=== PATIENT | male | born 1980 | race Two or more races ===

== ENCOUNTER 2023-09-22 08:47 | Outpatient (AMB) | payer OTHER, SELFPAY ==
--- NOTE | 2023-09-22 08:53 | MHC.OFFVIS ---
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 States on 09/20/23 while cleaning his glutter he fell off the ladder, landing on his foot. Seen in [facility] same day where xrays and a CT scan. Currently states his pain is a little better today. He has been using crutches and minimally weight-bearing on his right foot. The patient states that he currently lives mostly in [place]. 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 Physical Exam Vital Signs: BMI result Body Mass Index 26.8 Const Other: Well-nourished well-developed very friendly male awake alert and oriented x3 in no acute distress Extrem Other: Right foot and ankle examination show diffuse swelling along the anterior and lateral aspects of his foot and ankle, his lower leg compartments are soft, tenderness over the proximal aspect of his 5th metatarsal Results Reviewed Results Reviewed: X-rays of the patient's right foot show a mildly comminuted, minimally displaced fracture of the proximal aspect of his 5th metatarsal Assessment & Plan Assessment & Plan (1) Metatarsal stress fracture of right foot: Code(s): M84.374A - Stress fracture, right foot, initial encounter for fracture Plan: Mr. Hdz presents with right foot pain due to a minimally displaced fracture of the proximal aspect of his 5th metatarsal. I had a lengthy discussion with the patient regarding the treatment options. Most likely the patient's fracture will heal with non operative treatments. He was placed in a cam walker boot. He should continue with restricted weight-bearing until his pain improves significantly. I did recommend that the patient follow-up with a foot and ankle specialist when he returns to his home in [place]. He will follow up with me on an as-needed basis should any further questions or concerns arise. I spent 22 minutes in reviewing the patient's records and imaging studies, seeing the patient and documenting in the medical record. Coding Level of Care Code New Pt Level 2 (19029) Diagnoses Metatarsal stress fracture of right foot M84.374A
[2023-09-22 08:57] VITALS: BMI 26.8
== END 2023-09-22 09:19 | disposition home or self-care (01) ==
PROVIDERS: Visit Provider Orthopaedic Surgery
DX: M84.374A Stress fracture, right foot, initial encounter for fracture (principal)
CPT/HCPCS: 99202

== ENCOUNTER → 2023-09-22 08:47 | Outpatient (BNVA) | payer OTHER, SELFPAY | PROVIDERS: Visit Provider Orthopaedic Surgery ==

== ENCOUNTER 2023-10-18 07:17 | Outpatient (REF) | payer OTHER, SELFPAY ==
--- NOTE | ~2023-10-18 | XR_ITS ---
EXAMINATION: XR RIGHT ANKLE, RIGHT FOOT CLINICAL INFORMATION: Pain in right ankle and joints of the foot. Stress fracture right foot. Initial encounter for fracture. COMPARISON: None TECHNIQUE: AP and oblique views of the right ankle. 3 views of the right foot. FINDINGS: RIGHT ANKLE: Bone mineralization is normal. Alignment is preserved. Visualization limited due to overlying dressing. RIGHT FOOT: There is a mildly displaced intra-articular fracture at the base of the fifth metatarsal. Adjacent soft tissue swelling. Visualization limited due to overlying cast/dressing. XR/XR ankle RT 2V IMPRESSION: Mildly displaced intra-articular fracture at the base of the fifth metatarsal. This study was presented today October 19, 2023 at 11:10 AM for interpretation. [facility] staff will provide results to referring provider at this time.
--- NOTE | ~2023-10-18 | XR_ITS ---
EXAMINATION: XR RIGHT ANKLE, RIGHT FOOT CLINICAL INFORMATION: Pain in right ankle and joints of the foot. Stress fracture right foot. Initial encounter for fracture. COMPARISON: None TECHNIQUE: AP and oblique views of the right ankle. 3 views of the right foot. FINDINGS: RIGHT ANKLE: Bone mineralization is normal. Alignment is preserved. Visualization limited due to overlying dressing. RIGHT FOOT: There is a mildly displaced intra-articular fracture at the base of the fifth metatarsal. Adjacent soft tissue swelling. Visualization limited due to overlying cast/dressing. XR/XR foot RT 2V IMPRESSION: Mildly displaced intra-articular fracture at the base of the fifth metatarsal. This study was presented today October 19, 2023 at 11:10 AM for interpretation. [facility] staff will provide results to referring provider at this time.
== END 2023-10-18 07:18 | disposition home or self-care (01) ==
LOC: HO.HOSX 07:17
PROVIDERS: Visit Provider Orthopaedic Surgery
DX: M84.374A Stress fracture, right foot, initial encounter for fracture (principal)
CPT/HCPCS: 73600; 73620

== ENCOUNTER 2023-10-18 08:16 | Outpatient (AMB) | payer OTHER, SELFPAY ==
--- NOTE | 2023-10-18 08:27 | MHC.OFFVIS ---
Intake Vital Signs 10/18/23 08:33 Height 5 ft 7 in Weight 170 lb BMI 26.6 Intake Visit Reasons: OV-Right foot/ ankle fracture Intake Note: Joe a 43 year old male presents today for a follow up of right foot/ankle, DOI 09/20/23. The patient reports mild intermittent discomfort in his right foot and ankle. He has been weight-bearing as tolerated in a cam boot and using a cane over the last days. He does not take any medicines for his discomfort. 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 Exam Const Other: Well-nourished well-developed very friendly male awake alert and oriented x3 in no acute distress Extrem Other: Bilateral lower extremity examination shows good capillary refill, no skin lesions noted, normal sensation light touch Right foot and ankle examination show mild tenderness along his medial and anterior joint lines, minimal tenderness over his proximal 5th metatarsal, no overlying skin lesions Results Reviewed Results Reviewed: X-rays of the patient's right foot and ankle show a nondisplaced avulsion fracture of the proximal aspect of the 5th metatarsal, early callus formation at the fracture site; no medial ankle joint space widening Assessment & Plan Assessment & Plan (1) Metatarsal stress fracture of right foot: Code(s): M84.374A - Stress fracture, right foot, initial encounter for fracture Plan: Mr. Hdz continues to do well after suffering a fracture of his right foot 5th metatarsal on 09/20/2023. He can continue weight-bearing as tolerated in the cam walker boot. Activity modifications were discussed at length with the patient. He will contact me prior to his follow-up appointment in 6 weeks should any questions or concerns arise. I spent 22 minutes in reviewing the patient's records and imaging studies, seeing the patient and documenting in the medical record. Orders: Orders XR foot RT 2V Today M84.374A - Stress fracture, right foot, initial encounter for fracture XR ankle RT 2V Today M25.571 - Pain in right ankle and joints of right foot Coding Level of Care Code Est Pt Level 2 (83741) Diagnoses Metatarsal stress fracture of right foot M84.374A
[2023-10-18 08:33] VITALS: BMI 26.6
== END 2023-10-18 08:42 | disposition home or self-care (01) ==
PROVIDERS: Visit Provider Orthopaedic Surgery
DX: M84.374A Stress fracture, right foot, initial encounter for fracture (principal)
CPT/HCPCS: 99212

== ENCOUNTER 2023-11-29 08:04 | Outpatient (AMB) | payer OTHER, SELFPAY ==
[2023-11-29 08:07] VITALS: BMI 26.6
--- NOTE | 2023-11-29 08:07 | A.OFFVIS_ITS ---
Intake Vital Signs 11/29/23 08:07 Height 5 ft 7 in Weight 170 lb BMI 26.6 Intake Visit Reasons: OV-Right foot/ ankle fracture Intake Note: Joe a 43 year old male who presents today for a follow up of right foot/ankle, DOI 09/20/23. Patient reports the his foot / ankle is feeling better but his left hip is having some discomfort. He did undergo open reduction and internal fixation of his left hip acetabular fracture approximately 10 years ago. He denies any fevers or chills. He thinks that he has aggravated his left hip while limping to favor his right ankle discomfort. 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 Exam Vital Signs: BMI result Body Mass Index 26.6 Const Other: Well-nourished well-developed very friendly male awake alert and oriented x3 in no acute distress Extrem Other: Left hip examination shows minimal discomfort with range of motion, mild tenderness over his bursa Right foot examination shows minimal tenderness over the base of his 5th metatarsal, minimal discomfort with range of motion Results Reviewed Results Reviewed: X-rays of the patient's left hip taken today show acetabular hardware in good position with no signs of loosening, no acute bony abnormalities, mild joint space narrowing X-rays of the patient's right foot show bony trabecula crossing his 5th metatarsal base fracture Assessment & Plan Assessment & Plan (1) Left hip pain: Code(s): M25.552 - Pain in left hip (2) Metatarsal stress fracture of right foot: Code(s): M84.374A - Stress fracture, right foot, initial encounter for fracture Plan Mr. Hdz continues to clinically and radiographically heal his right foot 5th metatarsal base fracture. He will continue wearing a brace as needed. The patient has discomfort in his left hip most likely due to early degenerative howard int disease and greater trochanteric bursitis. At this point his hip discomfort is tolerable to him. He will continue activity modifications. He will follow up with me on an as-needed basis should his symptoms not plateau at an unacceptable level over the next few months. I spent 20 minutes in reviewing the patient's records and imaging studies, seeing the patient and documenting in the medical record. Orders: Orders XR hip LT min 2V Today M25.552 - Pain in left hip XR foot RT min 3V Today M84.374A - Stress fracture, right foot, initial encounter for fracture Coding Level of Care Code Est Pt Level 2 (74792) Diagnoses Left hip pain M25.552 Metatarsal stress fracture of right foot M84.374A
== END 2023-11-29 08:48 | disposition home or self-care (01) ==
PROVIDERS: Visit Provider Orthopaedic Surgery
DX: M25.552 Pain in left hip (principal); M84.374A Stress fracture, right foot, initial encounter for fracture
CPT/HCPCS: 99213

== ENCOUNTER 2023-11-29 08:12 | Outpatient (REF) | payer OTHER, SELFPAY ==
--- NOTE | ~2023-11-29 | XR_ITS ---
EXAMINATION: XR FOOT, RIGHT CLINICAL INFORMATION: Question stress fracture. COMPARISON: None available. TECHNIQUE: AP, lateral, and oblique views of the right foot. FINDINGS: The bones and soft tissues are normal. No fracture. There is no periosteal thickening noted. Alignment is anatomic. Joint spaces are maintained. XR/XR foot RT min 3V IMPRESSION: Normal right foot.
--- NOTE | ~2023-11-29 | XR_ITS ---
EXAMINATION: XR HIP, LEFT CLINICAL INFORMATION: Pain. COMPARISON: None available. TECHNIQUE: AP and frog-leg lateral views of the left hip. FINDINGS: No fracture. An orthopedic plate and screws are applied to the left ilium and acetabulum. No hardware failure or loosening is seen. Alignment is anatomic. Hip joint space is maintained. Soft tissues are unremarkable. XR/XR hip LT min 2V IMPRESSION: No unusual degenerative change is seen of the left hip. There are postoperative changes, without hardware failure or loosening noted.
== END 2023-11-29 08:13 | disposition home or self-care (01) ==
LOC: HO.HOSX 08:12
PROVIDERS: Visit Provider Orthopaedic Surgery
DX: M84.374A Stress fracture, right foot, initial encounter for fracture (principal); M25.552 Pain in left hip
CPT/HCPCS: 73502; 73630

== ENCOUNTER 2024-02-01 20:40 | Outpatient (REF) | payer OTHER, SELFPAY ==
[2024-02-01 20:53] LABS: MANUAL DIFF FLAG NO
[2024-02-01 20:54] LABS: Basophils Absolute Auto 0.1 X10*3/uL (0.0-0.2); Basophils Percent Auto 0.7 % (0-2); Eosinophils Absolute Auto 0.1 X10*3/uL (0.0-0.4); Eosinophils Percent Auto 1.2 % (0-4); Hematocrit 43.9 % (42.0-52.0); Hemoglobin 15.8 g/dl (14.0-18.0); Imm Gran Abs Auto 0.03 X10*3/uL (0.00-0.03); Imm Gran Pct Auto 0.4 % (0.0-0.4); Lymphocytes Absolute Auto 2.3 X10*3/uL (1.2-4.9); Lymphocytes Percent Auto 33.1 % (20-40); Mean Corpuscular Hemoglobin 32.2 pg (27.0-33.0); Mean Corpuscular Volume 89.6 fL (80.0-98.0); Mean Platelet Volume 11.5 fL (9.4-12.4); Monocytes Absolute Auto 0.6 X10*3/uL (0.1-1.2); Monocytes Percent Auto 8.3 % (2-11); Neutrophils Absolute Auto 3.9 x10*3/uL (2.0-8.3); Neutrophils Percent Auto 56.3 % (45-73); Platelet Count 193 X10*3/uL (160-400); White Blood Count 6.9 X10*3/uL (4.8-10.8)
[2024-02-01 21:09] LABS: Estimated Average Glucose 103 mg/dL; Hemoglobin A1c % 5.2 % (<6.0)
[2024-02-01 21:19] LABS: Alanine Aminotransferase 27 U/L (0-40); Albumin Level 4.8 g/dL (3.5-5.0); Alkaline Phosphatase 54 U/L (39-117); Anion Gap 10 (12-20); Aspartate Amino Transferase 19 U/L (5-37); Bilirubin Total 0.6 mg/dL (0.0-1.0); Blood Urea Nitrogen 18 mg/dL (9-16); Calcium 10.1 mg/dL (8.4-10.2); Carbon Dioxide 27 mmol/L (22-29); Chloride 107 mmol/L (96-108); Cholesterol 208 mg/dL (<200); Estimated Glomerular Filt Rate > 60; Glucose Random 97 mg/dL (60-115); HDL Cholesterol 38 mg/dL (>40); LDL Cholesterol Calculated 145 mg/dL (<100); Potassium 4.4 mmol/L (3.3-5.1); Sodium 140 mmol/L (135-145); Total Protein 8.2 g/dL (6.5-8.0); Triglycerides 125 mg/dL (<150)
[2024-02-01 21:35] LABS: Thyroid Stimulating Hormone 0.75 uIU/mL (0.32-4.0)
[2024-02-01 21:42] LABS: Folate 7.8 ng/mL (> or = 4.0); Vitamin B12 589 pg/mL (200-900)
== END 2024-02-01 20:41 | disposition home or self-care (01) ==
LOC: HO.LNP 20:40
PROVIDERS: Visit Provider Emergency Medicine
DX: Z13.6 Encounter for screening for cardiovascular disorders (principal); R53.83 Other fatigue
CPT/HCPCS: 80053; 80061; 82306; 82607; 82746; 83036; 84100; 84443; 85025

== ENCOUNTER 2024-03-13 18:01 | Outpatient (REF) | payer OTHER, SELFPAY ==
--- NOTE | ~2024-03-13 | MR_ITS ---
EXAMINATION: MR ANKLE WITHOUT CONTRAST, RIGHT CLINICAL INFORMATION: Right foot pain and edema. Skin discoloration. Talar and fifth metatarsal fractures following injury on 09/20/2023. Question ligament injury, avascular necrosis. COMPARISON: Most recent right foot radiographs dated 11/29/2023. TECHNIQUE: MRI of the ankle was performed using routine sequences on a high-field scanner. FINDINGS: BONE AND ARTICULAR CARTILAGE: Minimal patchy marrow edema within the medial malleolus and adjacent talar body, likely reactive to adjacent ligament pathology. No associated fracture. Healed fracture at the base of the fifth metatarsal with minimal if any persistent edema. No acute fracture or dislocation. Ankle mortise is maintained. Intact articular cartilage. No talar osteochondral lesion. ACHILLES TENDON: Intact. OTHER TENDONS: Trace fluid within the distal posterior tibialis tendon sheath consistent with minimal tenosynovitis. No transverse tendon tear or tendon retraction. LIGAMENTS: Diffuse heterogeneity and increased T2 signal throughout the deltoid ligament consistent with an acute grade 2 sprain/partial tear. Attenuation and heterogeneity of the anterior and posterior talofibular ligaments. Corticated ossification associated with the anterior talofibular ligament without edema. Findings are consistent with remote sprain/partial tears. JOINT FLUID AND SOFT TISSUES: No soft tissue mass or fluid collection. No significant joint effusion. PLANTAR FASCIA: Intact. SINUS TARSI AND TARSAL TUNNEL: Patent. MR/MR ankle RT wo con IMPRESSION: 1. Acute grade 2 sprain/partial tear of the deltoid ligament with reactive marrow edema in the adjacent medial malleolus and talar body. 2. Remote sprain/partial tears of the anterior and posterior talofibular ligaments. Corticated ossification associated with the anterior talofibular ligament without edema, consistent with remote sprain/partial tears. 3. Healed fracture at the base of the fifth metatarsal with minimal if any persistent edema. No acute fracture or dislocation. 4. Minimal posterior tibialis tenosynovitis without a measurable tendon tear.
== END 2024-03-13 18:02 | disposition home or self-care (01) ==
LOC: HO.MRI 18:01
PROVIDERS: PCP Internal Medicine; Visit Provider Orthopaedic Surgery
DX: M25.471 Effusion, right ankle (principal)
CPT/HCPCS: 73721

== ENCOUNTER 2025-02-11 15:36 | Outpatient (REF) | payer OTHER, SELFPAY ==
--- NOTE | ~2025-02-11 | XR_ITS ---
EXAMINATION: XR CERVICAL SPINE CLINICAL INFORMATION: headaches COMPARISON: None available. TECHNIQUE: 3 views of the cervical spine were obtained. FINDINGS: Craniocervical junction is intact. Small marginal osteophyte formation C4-5 C5-6 and C6-7 levels. No acute cortical disruption or malalignment. No lytic or blastic lesions. Focal well-corticated calcification in the nuchal ligament at C4 level Upper airways patent. XR/XR cervical spine 3V IMPRESSION: Mild multilevel cervical spondylosis more conspicuous at C5-6. Electronically signed by: Karthik Hill MD 02/13/2025 12:52 PM EDT
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
== END 2025-02-11 15:37 | disposition home or self-care (01) ==
LOC: HO.XRAY 15:36
DX: R51.9 Headache, unspecified (principal)
CPT/HCPCS: 72040

== ENCOUNTER → 2025-02-11 15:58 | Outpatient (BNV) | payer OTHER, SELFPAY | PROVIDERS: Visit Provider Radiology Diagnostic Radiology | DX: R51.9 Headache, unspecified (principal) | CPT/HCPCS: 72040 ==

== ENCOUNTER 2025-05-16 12:19 | Outpatient (REF) | payer OTHER, SELFPAY ==
[2025-02-12 20:45] LABS: MANUAL DIFF FLAG NO
[2025-02-12 20:54] LABS: Basophils Percent Auto 0.5 % (0-2); Eosinophils Absolute Auto 0.1 X10*3/uL (0.0-0.4); Eosinophils Percent Auto 1.5 % (0-4); Hematocrit 41.9 % (42.0-52.0); Imm Gran Abs Auto 0.03 X10*3/uL (0.00-0.03); Imm Gran Pct Auto 0.4 % (0.0-0.4); Lymphocytes Percent Auto 26.3 % (20-40); Mean Corpuscular HGB Conc 35.8 g/dl (31.0-36.0); Mean Corpuscular Hemoglobin 32.1 pg (27.0-33.0); Mean Corpuscular Volume 89.7 fL (80.0-98.0); Mean Platelet Volume 11.2 fL (9.4-12.4); Monocytes Absolute Auto 0.7 X10*3/uL (0.1-1.2); Neutrophils Absolute Auto 4.7 x10*3/uL (2.0-8.3); Neutrophils Percent Auto 62.3 % (45-73); Platelet Count 182 X10*3/uL (160-400); Red Blood Count 4.67 X10*6/uL (4.60-5.80); Red Cell Distribution Width 12.2 % (11.0-16.0); White Blood Count 7.5 X10*3/uL (4.8-10.8)
[2025-02-12 21:08] LABS: Alanine Aminotransferase 40 U/L (0-40); Albumin Level 4.4 g/dL (3.5-5.0); Alkaline Phosphatase 45 U/L (39-117); Anion Gap 9 (12-20); Aspartate Amino Transferase 25 U/L (5-37); Bilirubin Total 0.5 mg/dL (0.0-1.0); Blood Urea Nitrogen 21 mg/dL (9-16); Calcium 9.4 mg/dL (8.4-10.2); Carbon Dioxide 25 mmol/L (22-29); Chloride 107 mmol/L (96-108); Cholesterol 219 mg/dL (<200); Estimated Glomerular Filt Rate > 60; Glucose Random 95 mg/dL (60-115); HDL Cholesterol 44 mg/dL (>40); LDL Cholesterol Calculated 154 mg/dL (<100); Potassium 4.4 mmol/L (3.3-5.1); Sodium 137 mmol/L (135-145); Total Protein 7.4 g/dL (6.5-8.0); Triglycerides 106 mg/dL (<150)
[2025-02-12 21:21] LABS: Vitamin D 25-OH Total 32.2 ng/mL (>30)
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
== END 2025-05-16 12:20 | disposition home or self-care (01) ==
LOC: HO.LAB 12:19
DX: Z00.00 Encounter for general adult medical examination without abnormal findings (principal)
CPT/HCPCS: 36415; 80053; 80061; 82306; 85025

== ENCOUNTER 2025-08-26 09:13 | Outpatient (AMB) | payer OTHER, SELFPAY ==
--- NOTE | 2025-08-26 09:15 | A.OFFVIS_ITS ---
Vital Signs 08/26/25 09:16 Height 5 ft 7 in Weight 171 lb 15.369 oz BMI 26.9 BP 114/83 Blood Pressure Location Lt brachial Position Sitting Pulse 63 Intake Visit Reasons: lower gi bleed Intake Note: Joe presents in the office as a lower GI bleed new patient. CC: States that he is not actively bleeding but it comes and goes. States his last episode was last week - states it is not alot and not painful. Denies constipation or issues with his bowels. States that it has been happening more and more frequently. 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 Onset almost a year ago but has been progressively getting more frequent. Last week noticed rectal bleeding on wiping at least 3 times a week. Fresh blood, no clots, no pain. Not constipated. No straining. Stools are soft and regular. Brother: advanced polyps No fam hx of IBD. No anti-thrombotics. No changes in diet. Former smoker. Alcohol - once a month. 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 Review of Systems Const All systems reviewed & are unremarkable except as noted in HPI and below Physical Exam Exam Exam: No apparent distress Nonicteric Abdomen soft, nondistended Alert and oriented x3, normal gait Vital Signs: Last Vital Signs Pulse 63 08/26/25 09:16 BP 114/83 08/26/25 09:16 BMI result Body Mass Index 26.9 Assessment & Plan Assessment & Plan (1) Bright red rectal bleeding: Code(s): K62.5 - Hemorrhage of anus and rectum Category: Medical (2) Family history of colonic polyps: Code(s): Z83.719 - Family history of colon polyps, unspecified Category: Medical Plan Differentials include hemorrhoidal bleeding, SURS, proctitis, large friable polyp or mass. Will book for diagnostic colo. Plan: - CBC and iron panel - [place] to be booked - PEG prep Rxed and instructions reviewed. Handout provided as well. - Pt travels for work so will need to be coordinated during his time off Follow up after colo contingent on findings Orders: Orders Complete Blood Count no Diff Today K62.5 - Hemorrhage of anus and rectum IRON PROFILE Today K62.5 - Hemorrhage of anus and rectum Ferritin Today K62.5 - Hemorrhage of anus and rectum Referrals GI Procedure Notification K62.5 - Hemorrhage of anus and rectum Medications: New peg 3350-electrolytes 236-22.74-6.74 -5.86 gram (Golytely) as per split prep instructions, until fecal effluent is clear 240 mL PO Q10M 4,000 mL 0RF colonoscopy hydrocortisone 2.5% (Anusol-HC) 1 appl WA BEDTIME 30 grams 0RF hemorrhoids 14 days Coding Level of Care Code New Pt Level 4 (61721) Complex EM visit Add On G2211 Diagnoses Bright red rectal bleeding K62.5 Family history of colonic polyps Z83.719
[2025-08-26 09:16] VITALS: BP 114/83; PULSE 63; BMI 26.9
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
--- OUTSIDE RECORDS SUMMARY | 2025-08-26 10:23 | XMS_ITS | Clinical Summary ---
Author Organization [facility] Address [address] [address] Phone Care Team Providers Care Chronic Disease Manager Name Role Phone Unavailable Primary Care Provider Unavailabl e Immunizations Immunization Administration Dates Next Due Influenza Quadrivalent Preservative Free IM 05/2018 Social History Tobacco Use Types Packs/Day Years Used Date Smoking Tobacco: Never Assessed Education Answer Date Recorded Are you interested in more education? Not on arturo e 03/18/2023 Are you concerned about learning? Not on file 03/18/2023 No 03/18/2023 No 03/18/2023 Digital Access Answer Date Recorded No 04/16/2023 No 04/16/2023 No 04/16/2023 Reliable internet access at home? Not on file 04/16/2023 Device with a working camera? Not on file Sex and Gender Information Value Date Recorded Sex Assigned at Not on file Legal Sex Male 4:34 PM EDT Gender Identity Not on file Sexual Orientation Not on file Plan of Treatment Health Maintenance Due Date Last Done Comments Adult Td,Tdap Booster 1978 LIPID PANEL 1978 DEPRESSION SCREENING 1990 SMOKING Hx and SMOKELESS TOB ACCO SCREENING 1991 HEPATITIS C SCREENING 1996 HIV ONE-TIME SCREENING (18-6 5 YEARS) 1996 COLOGUARD 2023 COLONOSCOPY 2023 COLORECTAL CANCER SCREENING 2023 FIT TEST 2023 FOBT 2023 SIGMOIDOSCOPY 2023 VIRTUAL COLONOSCOPY 2023 INFLUENZA VACCINE (#1) 2025 09/27/2018 COVID-19 VACCINE (2 - 2024-2 6 season) 2025 03/05/2021 HEPATITIS A VACCINES Aged Out No long er eligible based on patient's age to complete this topic HIB VACCINES Aged Out No longer eligi ble based on patient's age to complete this topic MENINGOCOCCAL VACCINES (ACWY) Aged Out No longer eligible based on patient's age to complete this topic MENINGOCOCCAL VACCINES (B) Aged Out N o longer eligible based on patient's age to complete this topic PNEUMOCOCCAL VACCINES (0-49 years) Aged Out No longer eligible based on patient's age to complete this topic Medical Devices Not on file Additional Source Comments The information contained in this document represents components of the legal health record. It is not the complete legal health record.[facility]
== END 2025-08-26 09:49 | disposition home or self-care (01) ==
LOC: HO.HGI 09:14
PROVIDERS: Visit Provider Internal Medicine
DX: K62.5 Hemorrhage of anus and rectum (principal); Z83.719 Family history of colon polyps, unspecified
CPT/HCPCS: 99204

== ENCOUNTER 2025-08-26 09:13 | Outpatient (REF) | payer OTHER, SELFPAY ==
[2025-08-26 11:11] LABS: Hematocrit 43.1 % (42.0-52.0); Hemoglobin 14.7 g/dl (14.0-18.0); Mean Corpuscular HGB Conc 34.1 g/dl (31.0-36.0); Mean Corpuscular Hemoglobin 31.3 pg (27.0-33.0); Mean Corpuscular Volume 91.7 fL (80.0-98.0); NRBC Abs Auto 0.000 X10*3/uL (0.0-0.012); NRBC Pct Auto 0.0 /100WBC (0.0-0.2); Platelet Count 184 X10*3/uL (160-400); Red Blood Count 4.70 X10*6/uL (4.60-5.80); White Blood Count 8.1 X10*3/uL (4.8-10.8)
[2025-08-26 12:02] LABS: Iron 63 mcg/dL (45-160); Percent Iron Saturation 21 % (15-50); Total Iron Binding Capacity 296 mcg/dL (228-428); Unsaturated Iron Binding 233 ug/dL
[2025-08-26 12:20] LABS: Ferritin 148 ng/mL (20-250)
== END 2025-08-26 09:14 | disposition home or self-care (01) ==
LOC: HO.LAB 09:13
PROVIDERS: Visit Provider Internal Medicine
DX: K62.5 Hemorrhage of anus and rectum (principal); Z83.719 Family history of colon polyps, unspecified
CPT/HCPCS: 36415; 82728; 83540; 85027

== ENCOUNTER 2025-11-14 20:07 | Outpatient (REF) | payer OTHER, SELFPAY ==
--- NOTE | ~2025-11-14 | XR_ITS ---
CLINICAL HISTORY: Z56.9 - Unspecified problems related to employment 2 view chest x-ray Comparison: None provided Findings: No consolidation or effusion. Heart size is normal. No acute fracture. IMPRESSION: 1. No acute findings. This document has been electronically signed by: Siobhan Edwards MD on 11/14/2025 20:51:25
--- OUTSIDE RECORDS SUMMARY | 2025-11-14 20:11 | XMS_ITS | Clinical Summary ---
Author Organization [facility] Address [address] [address] Phone Care Team Providers Care Hog Room Supervisor Name Role Phone Unavailable Primary Care Provider [...] It is not the complete legal health record.[facility]
--- OUTSIDE RECORDS SUMMARY | 2025-11-14 20:11 | XMS_ITS | Data Portability ---
Author Organization [place] - Sander Wilkes MD, [facility], [employer] Address [address] [address] [place] [address] Assessment No assessment recorded. Plan of Treatment Reminders Order Date Submit Date Provider Last Modified By Organization Details Last Modified Time Details Appointments None recorded. Lab TSH, ultra-sens itive, serum 2018 019 [email or web address] Not available 9 05:52:25 lipid panel, serum 2018 019 Not available 9 05:52:25 HbA1c (hemoglobi n A1c), blood 2018 019 [email or web address] Not available 9 05:52:25 cmp, whole blood + emigdio 2018 019 [email or web address] Not available 9 05:52:25 CBC 2018 019 [email or web address] Not available 9 05:52:25 Referral None recorded. Procedures None recorded. Surgeries None recorded. Imaging None recorded. Medication Orders ibuprofen 600 mg tablet 2018 019 [facility], [address] [place] [address], [address], 9 14:47:25 sertraline 100 mg tablet 2018 019 [facility], [address] [place] [address], [address], 9 14:47:26 valacyclov ir 500 mg tablet 2018 019 [facility], [address] [place] [address], [address], 9 14:47:26 Ventolin HFA 90 mcg/actuat ion aerosol inhaler 2018 019 [facility], [address] [place] [address], [address], 9 14:47:24 Patient TargetsNo targets recorded. Patient Instructions Encounter Date Encounter Id Patient Instructions Last Modified By Organization Details Last Modified Time 02/13/2019 [id number] controlling your asthma: care instructions Not available 02/13/2019 14:47:17 learning about asthma Not available 02/13/2019 14:47:17 cold sores: care instructions [email or web address] Not available 02/13/2019 14:47:17 learning about mood disorders [email or web address] Not available 02/13/2019 14:47:17 Reason for Referral None Reported. Results Created Date Observation Date Name Description Value Unit Range Abnormal Flag Note LastModifiedBy Organization Detail LastModifiedTime 08/29/20 19 08/21/2019 XR, wrist , 3 or more view No observ ation record ed. [email or web address] Not Available 08/29 11:32:29 Result Notes None recorded. Problems Name Problem SNOMED Code Status Onset Date Resolution Date Notes Provider Name and Address Organization Details Recorded Time Family history of diabetes mellitus 257437810 Active Kevin Wilkes MD [address], [address], [place], [address], [facility] - Sander Wilkes MD, [facility] 9 14:39:09 Asthma 848379598 Active Kevin Wilkes MD [address], [address], [place], [address], [facility] - Sander Wilkes MD, [facility] 9 14:39:18 Depressive disorder 00545159 Active Kevin Wilkes MD [address], [address], [place], [address], [facility] Sofi Wlikes MD, [facility] 9 14:39:28 Herpes labialis 5614834 Active Kevin Wilkes MD [address], [address], [place], [address], [facility] Sofi Wilkes MD, [facility] 9 14:40:15 History of surgery 209908037 Active Kevin Wilkes MD [address], [address], [place], [address], [facility] Sofi Wilkes MD, [facility] 9 14:41:36 Problem Notes None [...] (BMI) Body weight Heart rate Oxygen saturation Respiratory rate Body temperature Systolic And Diastolic Provider Name and Address Organization Details Last Updated DateTime 9 170.18 cm 9.7 kg/m2 62669.7 3 g 72 /min 100 % 14 /min 98.8 [degF] 117/78 mm[Hg] Sander Wilkes MD [address], [address], [place], [address], [place] - Sander Wilkes MD, [facility] 9 14:38:36 Social History Question Answer Notes LastModified by Organizat ion Details LastModified Time Tobacco Smoking Status Never Smoker Not Available [facility] 09/05/2020 03:11:11 What Was The Date Of Your Most Recent Tobacco Screening? 02/13/2019 [id number] Information not available 09/05/2020 Sex: Unknown Functional Status None recorded. Mental Status None recorded. Family History Nothing Reported. Medical History No medical history recorded. Past Encounters Encounter ID Performer Location Encounter Start Date Encounter Closed Date Diagnosis/Indication Diagnosis SNOMED-CT Code Diagnosis ICD10 Code Diagnosis IMO Codes Diagnosis Note [id number] Sander Wilkes MD Main Office [address] [place] [address] [place] [address] 02/13/2019 14:26:05 02/13/2019 14:56:29 Asthma 486031041 J45.909 Depressive disorder 3548 9007 F32.9 letter for support animal doen refill zoloft Herpes labialis 3336807 B00.1 hx of flare up History of surgery 39256 5003 Z98.890 hx of left hip ORIF Family his tory of diabetes mellitus 460206331 Z83.3 dad Renewal of prescription 665143745 Z76.0 Health Concerns Section Related Observation LastModified by Organization Detai ls LastModified Time None Recorded Concern Status LastModified by Organization Details LastModified Time None Recorded Advance Directives Directive None Recorded Payers Insurance Date Sequence Insurance Name Policy Number Policy Pandey Covered Member ID Pandey Member ID Guarantor Name 02/25/2020 1 [facility] [id number] Joe Hdz [id number] SENA Hdz Notes Date Note Type Note Provider Name and Address Organization Details Recorded Time 02/13/2019 text/html Asthma F/UReport ed by PatientHPIFor quality, patient reportswell-controlled with antiasthmatics. For severity, patient reportsable to sleep during episodeanddoes not interfere with daily activities. For status, patient reportsimproving. For modifying factors, patient reportsavoidance of triggers,compliance with asthma regimen, andshort-acting beta agonist. For associated symptoms, patient reportsno fever,no fatigue,no irritability,no cough,normal appetite,no changes in productivity, andno shortness of breath. For antiasthmatics, patient reportscompliant with maintenance asthma medicationandno prior adverse reaction(s). Sander Wilkes MD [address], [address], [place], [address], [facility] - Sander Wilkes MD, [facility] 02/13/2019 14:54:17
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
== END 2025-11-14 20:08 | disposition home or self-care (01) ==
LOC: HO.XRAY 20:07
PROVIDERS: Absent Provider Internal Medicine; PCP Internal Medicine; Visit Provider Internal Medicine
DX: Z56.9 Unspecified problems related to employment (principal)
CPT/HCPCS: 71046

== ENCOUNTER → 2025-11-14 20:11 | Outpatient (BNV) | payer OTHER, SELFPAY | PROVIDERS: Absent Provider Internal Medicine; PCP Internal Medicine; Visit Provider Radiology Diagnostic Radiology | DX: Z56.9 Unspecified problems related to employment (principal) | CPT/HCPCS: 71046 ==